=== PATIENT | female | born 1945 | race Caucasian/White ===

== ENCOUNTER → 2025-03-07 | Outpatient (CLI) | payer OTHER ==
[~2025-03-07] MED LIST: IOHEXOL 350 MG/ML 100ML INFUS..BTL IV ONE
--- NOTE | 2025-03-09 05:48 | HMCIMG ---
EXAM: CTA Chest, abdomen, and pelvis for TAVR evaluation. CLINICAL HISTORY: Aortic stenosis. TECHNIQUE: EKG cardiac-gated thin collimated axial CT images of the chest, abdomen, and pelvis were obtained, and sagittal and coronal reformatted images were also submitted. A CT scan is done according to ALARA (As Low as Reasonably Achievable). CONTRAST USED: 100 cc Omnipaque 350. COMPARISON: None provided. FINDINGS: The AVCS (Aortic valve calcium score) is not available. 3 aortic sinuses are present. The annulus area is calcified. The aortic annulus measures 2.1 cm in transverse diameter. The aortic root at the widest point measures 2.8 cm. The aortic root at the sinotubular junction measures 2.2 cm. The vertical distance from the aortic annulus to the sinotubular junction at the left coronary sinus measures 1.7 cm. The left main coronary artery takes its origin from the ascending aorta, just above the level of the sinotubular junction. No pericardial effusion. Mild cardiomegaly with left ventricular myocardial hypertrophy and a prominent left atrial chamber. Calcifications in all major coronary vessels. Calcific changes in the mitral valve. There is mild to moderate atherosclerotic calcification of the thoracic aorta. The ascending aorta measures 2.9 x 3.1cm. The descending thoracic aorta measures 2.3 cm. No aortic dissection. The abdominal aorta measures 1.7 cm in anteroposterior dimensions and 1.8 cm in transverse dimensions at the level of renal arteries. The abdominal aorta at the level of bifurcation measures 1.6 cm. The right common iliac artery measures 1.1 cm, and the left common iliac artery measures 1.1 cm. The right and left common femoral arteries measure 0.8 cm. Calcified and noncalcified atherosclerotic plaques were identified in the abdominal aorta. Calcific/soft atherosclerotic changes are noted at the origin of superior mesenteric artery and bilateral main renal arteries, causing diameter stenosis of up to 20%. An accessory renal artery arises above the level of the left main renal arterial origin. A dense calcific and soft plaque is noted at the origin of this accessory renal artery causing moderate to severe hemodynamically significant diameter stenosis. No pulmonary embolus. Mosaic attenuation in both lungs, suggests air trapping. Few subpleural fibrotic tags. No pleural effusions. Small hiatal hernia. A hyperdense calculus of size 0.9cm in gall bladder lumen. Colonic diverticulosis without diverticulitis. Mild hepatomegaly (16.6cm) with moderate fatty changes. There is no other focal abnormality appreciated within the liver, pancreas, spleen, or adrenal glands. There is no obvious bowel wall thickening. Bowel loops are normal in caliber without evidence of obstruction or ileus. The appendix is normal. The urinary bladder is distended with mild wall thickening. Unremarkable reproductive organs. Small bilateral inguinal hernias containing fat. No lymphadenopathy. No free fluid. There is no acute osseous abnormality. Osteopenia. Moderate thoracolumbar spondylosis. IMPRESSIONS: 1. Aortic root measurements as described. Slightly higher origin of left main coronary artery, just above the level of the sinotubular junction. 2. Mild cardiomegaly. Dense coronary calcifications in all three major vessels. No aortic aneurysm or dissection. 3. Mild to moderate calcific/soft atherosclerosis in the aorta and its branches. Calcific/soft atherosclerotic changes at the origins of the superior mesenteric artery and bilateral main renal arteries, causing diameter stenosis of up to 20%. An accessory renal artery arises above the level of the left main renal arterial origin. A dense calcific and soft plaque at the origin of this accessory renal artery, causing moderate to severe hemodynamically significant diameter stenosis. 4. Mosaic attenuation in both lungs, suggests air trapping. No pulmonary embolus. 5. Small hiatal hernia. 6. Cholelithiasis. 7. Colonic diverticulosis without diverticulitis. 8. Mild hepatomegaly with moderate fatty changes. /[place]
== END | disposition home or self-care (01) ==
LOC: RAH 07:19
PROVIDERS: ATTEND Student in an Organized Health Care Education/Training Program
DX: K76.0 Fatty (change of) liver, not elsewhere classified (principal); I35.0 Nonrheumatic aortic (valve) stenosis; I51.7 Cardiomegaly; R16.0 Hepatomegaly, not elsewhere classified; I70.0 Atherosclerosis of aorta; I70.1 Atherosclerosis of renal artery; K44.9 Diaphragmatic hernia without obstruction or gangrene; K57.30 Diverticulosis of large intestine without perforation or abscess without bleeding; K80.20 Calculus of gallbladder without cholecystitis without obstruction; I25.10 Atherosclerotic heart disease of native coronary artery without angina pectoris; M85.88 Other specified disorders of bone density and structure, other site; M47.815 Spondylosis without myelopathy or radiculopathy, thoracolumbar region; N32.89 Other specified disorders of bladder
CPT/HCPCS: 74174; 71275; Q9967